=== PATIENT | male | born 1990 | race Caucasian/White ===

== ENCOUNTER 2017-07-02 11:56 | Emergency (ER) | payer OTHER ==
[2017-07-02 14:12] VITALS: BP 143/87
== END 2017-07-02 14:12 | disposition home or self-care (01) ==
LOC: ED 11:56
DX: T59.4X1A Toxic effect of chlorine gas, accidental (unintentional), initial encounter (principal); R06.02 Shortness of breath; Y92.89 Other specified places as the place of occurrence of the external cause
CPT/HCPCS: Q0092